=== PATIENT | female | born 1950 ===

== ENCOUNTER 2019-03-08 05:52 | Inpatient (IN) ==
[2019-03-08] MEDS ORDERED: 0.9 % SODIUM CHLORIDE 1,000 ML IV ONE (07:10)
[2019-03-08] MEDS ORDERED: 0.9 % SODIUM CHLORIDE 250 ML IV SCH ×3 (07:30→09:11)
[2019-03-08] MEDS ORDERED: NOREPINEPHRINE BITARTRATE 16 MG in 0.9 % SODIUM CHLORIDE 234 ML IV SCH (07:30)
[2019-03-08] MEDS ORDERED: VASOPRESSIN 20 UNIT in DEXTROSE 5% IN WATER 99 ML IV SCH ×2 (08:00→16:00)
[2019-03-08] MEDS ORDERED: HEPARIN/NS 500 ML IV ONE (08:28)
[2019-03-08] MEDS ORDERED: 0.9 % SODIUM CHLORIDE 10 ML SYRINGE IV PRN ×2 (08:46→09:11)
--- NOTE | 2019-03-08 08:58 | Internal Med History&Physical ---
Medical - H&P: HPI Patient information: Note initiated : 03/08/19 at 8:55 am Service Date, if different from initiated Date: [] Patient: Nadege Lara a 68 y/o F admitted on 03/08/19 for PNA, sepsis. Chief Complaint: [] History of present illness: Ms. Lara is a 68 year old F Who presented to the [facility] ER for weakness for several weeks, and her stating she was acting "weird". When EMS arrived she was hypotensive and hypoxic. Per discussion with ED physician at [facility] she was hypotensive receive 1500 cc of fluid but her systolic up to 88. She was found to have elevated white blood cell count procalcitonin and chest x-ray which felt showed right lower lobe pneumonia. They do not have dialysis of is requested to send her over here. She had a lactate of 3.9 elevated liver enzymes. They obtain a troponin as well which is elevated at 0.13 they states she denied any chest pain and EKG showed no ischemic changes and that she has chronically elevated troponins. Sounds like there is a bowel movement of bright red blood when EMS came to pick her up at [facility]. I was never informed of this prior to the transfer. her hemoglobin at [facility] was 13. Typically runs 12-13's. When she arrived here her systolic was in the 50s, she was awake however although quite drowsy. But did respond to my questions initially denying pain or shortness of breath. However she has become unresponsive. Talking with the family sounds like she fell a few weeks ago and has been doing poorly since then. She was at [facility] for a night for COPD dialysis. Unable to in review of systems given unresponsiveness. She described her CODE STATUS to nurses when she initially arrived as DNR/DNI. Family conflicted with initially stating to everything. Obtained POST from [facility] which showed DNR/DNI with limited interventions. After some time discussion with her and her daughter, it was agreed to continue with vasopressors and BiPAP if needed but no chest compressions or intubation. Medical - H&P: PMH Medical history: Past medical history: History of CVA Diabetes Chronic anemia End-stage renal disease with oliguria GERD Atrial Fibrillation on apixaban History of diastolic heart failure History of COPD Anxiety/depression History of hyponatremia Past surgical history: Cholecystectomy Cataract surgery Family history mother had ovarian cancer Father lung cancer and CAD Social history: I am unable to get as she is altered and also sedated from procedure for central line and arterial line Per notes sound like she is a smoker or quit She was arranged at alf facilities but believe recently with her . Medical - H&P: Meds Home Medications Medication Instructions Recorded Confirmed Type Budesonide [Pulmicort] 0.5 mg INH BID 03/08/19 03/08/19 History Gabapentin [Neurontin] 300 mg PO BID 03/08/19 03/08/19 History Insulin Aspart [Novolog] 0 unit SQ AC 03/08/19 03/08/19 History Ipratropium/Albuterol [Duoneb] 3 ml NEB Q6HP PRN 03/08/19 03/08/19 History Polyethylene Glycol 3350 [Miralax] 17 gm PO HS 03/08/19 03/08/19 History Sevelamer [Renvela] 1,600 mg PO TIDCC 03/08/19 03/08/19 History Allergies Allergy/AdvReac Type Severity Reaction Status Date / Time oxycodone Allergy Unknown Unknown Verified 03/08/19 09:23 Warfarin Allergy Unknown Unknown Verified 03/08/19 09:23 Medical - H&P: Exam - Constitutional Exam: General: Unresponsive Eyes/N/T: Pupils 3 mm and sluggish but reactive. Head/Neck: neck supple, normocephalic atraumatic CV: RRR, No murmurs, normal s1/s2 Pulm: No rales or rhonchi, occasional wheeze abd: soft, nontender, +BS x4 Ext: no clubbing, cyanosis to fingers and toes, 3-second cap refill trace edema to legs Neuro: Unresponsive to voice or sternal rub, pupils sluggish but reactive, unable to obtain thorough neuro given her current state, appears to be breathing on her own but does not make eye contact Skin: warm/dry Medical - H&P: Reslt - Labs CBC & Chem 7: 03/08/19 09:32 03/08/19 09:32 - Impressions Per discussion with ED physician at [facility] he stated that her chest x-ray showed right lower lobe pneumonia I have not seen the images or Medical - H&P: A/P - Narrative A/P Narrative: A: *Septic shock: -With lactic acidosis *PNA: -Elevated procalcitonin *Acute hypoxic respiratory failure: *Ischemic hepatopathy: *ESRD: follows with Dr. Pruitt *Anemia, chronic: *Metabolic acidosis: 2/2 above *DM *AFib: on eliquis *h/o dCHF *COPD *Depression/anxiety *History of hyponatremia *?h/o CVA *Goals of care: Several discussions with family members. Patient will continue with current treatment but no CPR or intubation, okay with vasopressors and BiPAP for now. -Patient was extremely guarded prognosis P: -Vasopressors -Follow-up lactate and ABG, A-line and CVC placement -BiPAP if needed -Zosyn/azithromycin -pending blood cultures, trend procalcitonin -Check dig level -Dr. Pruitt following -nebs/RT -NGT for meds -Basal insulin and sliding scale insulin -pt/ot -ppx: eliuis/H2 DNR/DNI, vasopressors and BiPAP okay for now
[2019-03-08] MEDS ORDERED: HEPARIN/NS 500 ML IV SCH ×2 (09:00→09:11)
[2019-03-08] MEDS ORDERED: BUDESONIDE 0.5 MG/2 ML AMPUL.NEB NEB SCH (09:00)
[2019-03-08] MEDS ORDERED: 0.9 % SODIUM CHLORIDE 10 ML SYRINGE IV SCH ×3 (09:00→21:00)
[2019-03-08] MEDS ORDERED: ONDANSETRON 4 MG/2 ML VIAL IV PRN (09:11)
[2019-03-08] MEDS ORDERED: ACETAMINOPHEN 325 MG TABLET PO PRN (09:11)
[2019-03-08] MEDS ORDERED: IPRATROPIUM/ALBUTEROL 3 ML AMPUL.NEB NEB PRN (09:11)
[2019-03-08] MEDS ORDERED: DEXTROSE 50% 50 ML VIAL IV PRN (09:11)
[2019-03-08] MEDS ORDERED: SENNOSIDES 1 TABLET PO PRN (09:11)
[2019-03-08] MEDS ORDERED: DEXTROSE 31 GM ORAL.SUSP PO PRN (09:11)
[2019-03-08] MEDS ORDERED: PHENYLEPHRINE 10 MG in 0.9 % SODIUM CHLORIDE 499 ML IV SCH (09:15)
[2019-03-08] MEDS ORDERED: methylPREDNISolone SOD SUCC 125 MG/2 ML VIAL IV ONE (09:49)
[2019-03-08] MEDS ORDERED: AZITHROMYCIN 500 MG in DEXTROSE 5% IN WATER 250 ML IV SCH (10:00)
[2019-03-08 10:22] LABS: Basophils # (Auto) 0.1 K/mcL (0.0-0.3); Basophils % (Auto) 0.4 % (0.0-2.0); Eosinophils # (Auto) 0 K/mcL (0.0-0.7); Eosinophils % (Auto) 0 % (0.0-7.0); Granulocytes % (Auto) 85.9 % (38.0-78.0); Lymphocytes # (Auto) 1.8 K/mcL (1.5-4.8); Lymphocytes % (Auto) 7.8 % (15.5-49.0); Mean Cell Volume 102.3 fL (80.0-100.0); Mean Corpuscular HGB Conc 30.6 g/dL (31.0-36.0); Monocytes # (Auto) 1.4 K/mcL (0.1-0.9); Monocytes % (Auto) 5.9 % (1.0-12.0); Platelet Count 247 K/mcL (140-440); Red Cell Distribution Width 19.2 % (11.5-14.5)
[2019-03-08 10:45] LABS: Anisocytosis 1+ (NONE SEEN); Band Neutrophils % 5 % (0-10); Eosinophils % (Manual) 1 % (0-7); Lymphocytes % 4 % (15-49); Macrocytosis 1+ (NONE SEEN); Monocytes % (Manual) 6 % (1-12); Myelocytes % 1 % (0-0); Platelet Estimate NORMAL (NORMAL); RBC Morphology ABNORM (NORMAL); Segmented Neutrophils % 83 % (38-78)
[2019-03-08 11:04] LABS: ALT/SGPT 682 U/l (0-40); Albumin/Globulin Ratio 1.3 (1.0-2.3); Alkaline Phosphatase 240 U/L (39-117); Bilirubin,Direct 0.5 mg/dL (0.0-0.3); Blood Urea Nitrogen 55 mg/dl (8-23); Gamma Glutamyl Transpeptidase 35 U/L (5-36); Uric Acid 4.4 mg/dL (2.5-8.0)
[2019-03-08] MEDS ORDERED: LORazepam 2 MG/ML VIAL IV PRN (11:13)
[2019-03-08] MEDS ORDERED: ONDANSETRON 4 MG ODT TABLET SL PRN (11:13)
[2019-03-08] MEDS ORDERED: HYDROmorphone 2 MG/ML VIAL IV PRN (11:13)
[2019-03-08] MEDS ORDERED: SCOPOLAMINE 1 PATCH PATCH TOPICAL ONE (11:13)
[2019-03-08] MEDS ORDERED: LACTOPEROXI/GLUC OXID/POT THIO 1 EACH GEL..EA. TOPICAL PRN (11:23)
[2019-03-08] MEDS ORDERED: INSULIN LISPRO 1 UNIT/0.01 ML UNIT SQ SCH (11:30)
--- NOTE | 2019-03-08 11:40 | General Surgery Progress Note ---
Surgical - Auxillary Note - Subjective Patient Information: Note initiated : 03/08/19 at 11:24 am Service Date, if different from initiated Date: [] Patient: Nadege Lara 68 y/o F admitted on 03/08/19 for PNA, sepsis. Chief Complaint: Septic shock, patient needing central line and arterial line placement. Request from Dr. Malu العراقي to anesthesia. Patient is reported to be DNR/DNI but will allow central line and arterial line placement for medication administration and stabilization in order to continue dialysis treatment. Report is that Dr. Pruitt denying ICU staff to access right subclavian dialysis catheter. Multiple previous attempts for large bore peripheral IV's and external jugular peripheral IV's failed. Patient currently on maximum doses of norepinephrine (35mcg/min) and vasopressin (0.04u/min) via midline catheter in right upper arm with current failed left A/V fistula. Blood pressure 60-80's/30- 60's on nonrebreather mask at 15L and O2 sat of 70-85. Atrial fibrillation noted. Labs noted. Extremities cool, mottled, and intermittent pulses noted. , sister, and daughter in current cosmetic counselor with Dr. Malu العراقي regarding course of treatment. Patient arousable to painful stimulation. Nodding head appropriately to yes/no questions. Sedation administered versed 5mg and ketamine 20mg. Left internal jugular central line placed with ultrasound guidance. Sterile technique observed (see procedural sheet). Previous attempt to right internal jugular unsuccessful by anesthesia student. Hemostasis achieved. Left internal jugular then cannulated by Jason Graves CRNA without complications. Arterial catheter placement unsuccessful to both radial arteries as well as right and left dorsalis pedis arteries and left femoral artery. Hemostasis achieved with each attempt. Patient requiring intermittent bag-valve mask ventilation throughout procedures, bi-PAP applied by respiratory at consent of family and Dr. العراقي. Blood pressure remained low, neosynephrine drip also added. After multiple attempts for arterial lines attempted and multiple conversations with family and adhering to patient's previous wishes, arterial line attempts stopped, and comfort care decided upon for final course of treatment.
--- NOTE | 2019-03-08 11:44 | Death Note ---
Discharge Sum: Prov - Provider Patient information: Note initiated : 03/08/19 at 11:41 am Service Date, if different from initiated Date: [] Patient: Nadege Lara a 68 y/o F admitted on 03/08/19 for PNA, sepsis. Chief Complaint: [] Primary care physician: Delon Kincaid Consults: 03/08/19 09:11 Consult to Physician [CONS] Urgent Comment: Consulting Provider: Jace Pruitt Reason For Exam: Physician to Consult Discharge Sum: Diag - PCOD Cause of : Pneumonia Discharge Sum: Summary - Date and Time Date of admission: 03/08/19 07:00 - Summary Details: Ms. Lara is a 68 year old F Who presented to the [facility] ER for weakness for several weeks, and her stating she was acting "weird". When EMS arrived she was hypotensive and hypoxic. Per discussion with ED physician at [facility] she was hypotensive receive 1500 cc of fluid but her systolic up to 88. She was found to have elevated white blood cell count procalcitonin and chest x-ray which felt showed right lower lobe pneumonia. They do not have dialysis of is requested to send her over here. She had a lactate of 3.9 elevated liver enzymes. They obtain a troponin as well which is elevated at 0.13 they states she denied any chest pain and EKG showed no ischemic changes and that she has chronically elevated troponins. Sounds like there is a bowel movement of bright red blood when EMS came to pick her up at [facility]. I was never informed of this prior to the transfer. her hemoglobin at [facility] was 13. Typically runs 12-13's. When she arrived here her systolic was in the 50s, she was awake however although quite drowsy. But did respond to my questions initially denying pain or shortness of breath. However she has become unresponsive. Talking with the family sounds like she fell a few weeks ago and has been doing poorly since then. She was at [facility] for a night for COPD dialysis. Unable to in review of systems given unresponsiveness. She described her CODE STATUS to nurses when she initially arrived as DNR/DNI. Family conflicted with initially stating to everything. Obtained POST from [facility] which showed DNR/DNI with limited interventions. After some time discussion with her and her daughter, it was agreed to continue with vasopressors and BiPAP if needed but no chest compressions or intubation. Further discussions with family - More family members present this time including sister. Explained that we have not been able to make any progress; BP and labs are worsening and incompatible with life. After further discussion it was decided to transition to comfort care only. Will place appropriate orders and allow family back in with the patient. Notified Dr. Pruitt. --------- A: *Septic shock: *PNA: *Acute hypoxic respiratory failure: *Ischemic hepatopathy: *ESRD: follows with Dr. Pruitt *Anemia, chronic: *Metabolic acidosis: 2/2 above *DM *AFib: on eliquis *h/o dCHF *COPD (O2@home) *Depression/anxiety *History of hyponatremia *h/o CVA *Goals of care: Several discussions with family members. Patient will continue with current treatment but no CPR or intubation, okay with vasopressors and BiPAP for now. -Patient was extremely guarded prognosis - Additional Data Attending physician: Kristofer العراقي
[2019-03-08] MEDS ORDERED: PIPERACILLIN SODIUM/TAZOBACTAM 2.25 GM in DEXTROSE 5% IN WATER 50 ML IV SCH (12:00)
[2019-03-08] MEDS ORDERED: IPRATROPIUM/ALBUTEROL 3 ML AMPUL.NEB NEB SCH (13:00)
[2019-03-08] MEDS ORDERED: KETAMINE 100 MG/ML ML IV ONE (16:00)
[2019-03-08] MEDS ORDERED: MIDAZOLAM 5 MG/5 ML VIAL IV ONE (16:00)
--- NOTE | 2019-03-08 20:51 | Death Note ---
Discharge Sum: Prov - Provider Patient information: Note initiated : 03/08/19 at 8:49 pm Service Date, if different from initiated Date: [] Patient: Nadege Lara a 68 y/o F admitted on 03/08/19 for PNA, sepsis. Chief Complaint: [] Primary care physician: Delon Kincaid Admitting clinician: Kristofer العراقي Consults: 03/08/19 09:11 Consult to Physician [CONS] Urgent Comment: Consulting Provider: Jace Pruitt Reason For Exam: Physician to Consult 03/08/19 14:14 Consult to Physician [CONS] Routine Comment: Consulting Provider: [facility] Reason For Exam: Physician to Consult Discharge Sum: Diag - PCOD Cause of : Septic shock Discharge Sum: Summary - Date and Time Date of admission: 03/08/19 07:00 Date of : 03/08/19 Time of : 12:50 - Summary Details: Ms. Lara is a 68 year old F Who presented to the [facility] ER for weakness for several weeks, and her stating she was acting "weird". When EMS arrived she was hypotensive and hypoxic. Per discussion with ED physician at [facility] she was hypotensive receive 1500 cc of fluid but her systolic up to 88. She was found to have elevated white blood cell count procalcitonin and chest x-ray which felt showed right lower lobe pneumonia. They do not have dialysis of is requested to send her over here. She had a lactate of 3.9 elevated liver enzymes. They obtain a troponin as well which is elevated at 0.13 they states she denied any chest pain and EKG showed no ischemic changes and that she has chronically elevated troponins. Sounds like there is a bowel movement of bright red blood when EMS came to pick her up at [facility]. I was never informed of this prior to the transfer. her hemoglobin at [facility] was 13. Typically runs 12-13's. When she arrived here her systolic was in the 50s, she was awake however although quite drowsy. But did respond to my questions initially denying pain or shortness of breath. However she has become unresponsive. Talking with the family sounds like she fell a few weeks ago and has been doing poorly since then. She was at [facility] for a night for COPD dialysis. Unable to in review of systems given unresponsiveness. She described her CODE STATUS to nurses when she initially arrived as DNR/DNI. Family conflicted with initially stating to everything. Obtained POST from [facility] which showed DNR/DNI with limited interventions. After some time discussion with her and her daughter, it was agreed to continue with vasopressors and BiPAP if needed but no chest compressions or intubation. Further discussions with family - More family members present this time including sister. Explained that we have not been able to make any progress; BP and labs are worsening and incompatible with life. After further discussion it was decided to transition to comfort care only. Will place appropriate orders and allow family back in with the patient. [id number] Patient succumbed to septic shock/progressive respiratory failure shortly after she was transitioned to comfort care as per family wishes. - Additional Data Confirmation of as documented by pronouncing clinician: no pulse, no respirations, no heart sounds, pupils fixed and dilated Family: at bedside Attending/PCP notified?: Yes Attending physician: Kristofer العراقي Was code activated?: No Autopsy requested?: No x ray examiner of aircraft notified?: No Organ bank notified?: No Advance directives?: No Hospice patient?: No
[2019-03-08] MEDS ORDERED: FAMOTIDINE/PF 20 MG/2 ML VIAL IV SCH (21:00)
[2019-03-09] MEDS ORDERED: NOREPINEPHRINE BITARTRATE 16 MG in 0.9 % SODIUM CHLORIDE 234 ML IV SCH (07:30)
--- NOTE | 2019-03-11 12:10 | Procedure Note ---
Procedures - Central Line Placement Left IJ Consent obtained: verbal consent Date of Procedure: 03/08/19 Time out performed: Yes Patient placed on monitor/pulse ox: Yes MD prep: mask, sterile gown, sterile gloves, cap Central line prep: 2% Chlorhexidine scrub, large sterile drapes applied, proper hand hygiene Amount of anesthesia used (mls): 0 (IV sedation) Ultrasound used for placement: Yes Central line lumen inserted: quad, 16 cm Post procedure: sutured in place, good blood return, all ports aspirated, flushed, capped, sterile dressing applied Post procedure x-ray: tip of catheter in good position, no pneumothorax seen Patient tolerated procedure: well, no complications (Previous Right IJ canulation attempt failed, hematoma noted, hemostasis achieved. See anesthesia note for additional details regarding central line placement and arterial line placement attempt. )
== END 2019-03-08 16:01 | disposition expired | DRG 871 ==
LOC: ICU 07:00
PROVIDERS: ADMIT Internal Medicine; ATTEND Internal Medicine